=== PATIENT | male | born 1950 | race Caucasian/White ===

== ENCOUNTER 2018-07-05 01:38 | Outpatient (CLI) | payer MEDICARE, SELFPAY ==
[2018-07-05 09:22] LABS: ALT 20 U/L (12-78); AST 17 U/L (15-37); Albumin 4.1 g/dL (3.4-5.0); Alkaline Phosphatase 49 U/L (46-116); Anion Gap 5.6 mmol/L (3-11); BUN 24 mg/dL (7-18); Bilirubin, Total 0.7 mg/dL (0.2-1.0); CO2 31.4 mmol/L (21.0-32.0); Calcium 8.9 mg/dL (8.5-10.1); Chloride 103 mmol/L (98-107); Cholesterol 187 mg/dL (50-200); Glucose 87 mg/dL (70-100); HDL Cholesterol 90 mg/dL (40-60); LDL CHOLESTEROL 86 mg/dL (<100); Potassium 4.6 mmol/L (3.5-5.1); Sodium 140 mmol/L (136-145); Total Protein 6.7 g/dL (6.4-8.2); Triglyceride 30 mg/dL (30-150)
[2018-07-06 10:31] LABS: HIV-1/2 Ag & Ab Screen Negative (NEGAT)
[2018-07-06 12:32] LABS: Hepatitis C Ab w Rflx HCV PCR Negative (NEGAT)
== END 2018-07-05 01:58 ==
PROVIDERS: PCP Nurse Practitioner Family; Visit Provider Nurse Practitioner Family
DX: E78.5 Hyperlipidemia, unspecified (principal); Z13.1 Encounter for screening for diabetes mellitus; Z11.59 Encounter for screening for other viral diseases; Z11.4 Encounter for screening for human immunodeficiency virus [HIV]
CPT/HCPCS: 36415; 80053; 80061; 83721; 86803; 87389

== ENCOUNTER 2020-05-06 01:50 | Outpatient (CLI) | payer OTHER, SELFPAY ==
[2020-05-06 09:21] LABS: Calculated LDL 97 mg/dL (<100); Cholesterol 201 mg/dL (<200); HDL Cholesterol 98 mg/dL (40-60); Triglyceride 31 mg/dL (<150)
== END 2020-05-06 02:10 ==
PROVIDERS: PCP Nurse Practitioner Family; Visit Provider Nurse Practitioner Family
DX: E78.5 Hyperlipidemia, unspecified (principal)
CPT/HCPCS: 36415; 80061

== ENCOUNTER 2020-06-20 02:32 | Outpatient (CLI) | payer OTHER, SELFPAY ==
[2020-06-24 19:04] LABS: Patient Race White; SARS-CoV-2 RNA Undetected (Undetected); SARS-CoV-2 Specimen Source Nasal
== END 2020-06-20 02:52 ==
PROVIDERS: PCP Nurse Practitioner Family; Visit Provider Nurse Practitioner Family
DX: Z11.59 Encounter for screening for other viral diseases (principal)
CPT/HCPCS: U0003

== ENCOUNTER 2021-05-14 04:01 | Outpatient (CLI) | payer OTHER, SELFPAY ==
[2021-05-14 09:56] LABS: BUN 23 mg/dL (7-18); Calcium 8.9 mg/dL (8.5-10.1); Calculated LDL 101 mg/dL (<100); Chloride 104 mmol/L (98-107); Cholesterol 202 mg/dL (<200); Glucose 93 mg/dL (74-106); HDL Cholesterol 92 mg/dL (40-60); Potassium 4.7 mmol/L (3.5-5.1); Sodium 142 mmol/L (136-145); Triglyceride 46 mg/dL (<150)
[2021-05-15 17:01] LABS: CRP, High Sensitivity 0.72 mg/L (See Note)
== END 2021-05-14 04:02 | disposition home or self-care (01) ==
LOC: LBO 04:01
PROVIDERS: PCP Nurse Practitioner Family; Visit Provider Nurse Practitioner Family
DX: E78.5 Hyperlipidemia, unspecified; Z13.1 Encounter for screening for diabetes mellitus
CPT/HCPCS: 36415; 80048; 80061; 86141